=== PATIENT | female | born 1960 | race Caucasian/White ===

== ENCOUNTER 2018-06-26 08:30 | Emergency (ER) | payer OTHER ==
[~2018-06-26] VITALS: Ht 152.4 cm; Wt 56.0 kg
[2018-06-26] MEDS ORDERED: ONDANSETRON HCL 4MG/2ML INJ IV STA (09:17)
[2018-06-26] MEDS ORDERED: SODIUM CHLORIDE 0.9% 1,000 ML IV ONE (09:17)
[2018-06-26] MEDS ORDERED: MORPHINE SULFATE 10 MG/ML CPJ IV ONE (09:30)
[2018-06-26 10:21] LABS: BASOPHILS % 0.2 % (0.0-2.0); EOSINOPHILS % 0.1 % (0.0-5.0); HEMATOCRIT. 51.3 % (36.0-48.0); HEMOGLOBIN. 17.2 g/dL (12.0-16.0); LYMPHOCYTES % 7.1 % (20.0-50.0); MEAN CORPUSCULAR HEMOGLOBIN 30.6 pg (28.0-32.0); MEAN CORPUSCULAR VOLUME 91.2 fL (81.0-99.0); MEAN PLATELET VOLUME 8.7 fl (7.4-10.4); NEUTROPHILS % 84.6 % (40.0-76.0); PLATELET 299 x1000/uL (130-400); RED BLOOD CELL COUNT 5.63 mill/uL (4.2-5.4); RED CELL DISTRIBUTION WIDTH 14.1 % (11.6-14.6)
[2018-06-26 10:29] LABS: INR 1.1; PROTHROMBIN TIME 10.7 sec (9.1-11.1)
[2018-06-26 10:32] LABS: CLARITY URINE CLOUDY (CLEAR); COLOR URINE ORANGE (YELLOW); KETONES URINE 1+ (NEGATIVE); LEUKOCYTE ESTERASE URINE 1+ (NEGATIVE); NITRITE URINE POSITIVE (NEGATIVE); OCCULT BLOOD URINE 3+ (NEGATIVE); PROTEIN URINE 1+ (NEGATIVE); SPECIFIC GRAVITY URINE 1.027 (1.005-1.030)
[2018-06-26 10:41] LABS: CHLORIDE 100 mEq/L (98-107)
[2018-06-26] MEDS ORDERED: CEFTRIAXONE 1 G PREMIX 50 ML IV ONE (10:45)
[2018-06-26 11:52] VITALS: BP 158/78
== END 2018-06-26 12:29 | disposition home or self-care (01) ==
LOC: ER 08:30
DX: N10 Acute pyelonephritis (principal); E86.0 Dehydration; I10 Essential (primary) hypertension
CPT/HCPCS: 36415; 80053; 81003; 83605; 83690; 85025; 85610; 96361; 96374; 96375; 99283; J0696; J2270; J2405; J7030

== ENCOUNTER 2022-09-25 10:31 | Emergency (ER) | payer MEDICARE, OTHER ==
[~2022-09-25] VITALS: Ht 157.5 cm; Wt 73.0 kg
[2022-09-25] MEDS ORDERED: KETOROLAC 60MG/2ML VIAL IM ONE (16:30)
[2022-09-25] MEDS ORDERED: ACETAMINOPHEN 325MG TABLET PO ONE (16:30)
[2022-09-25] MEDS ORDERED: METHOCARBAMOL 750MG TABLET PO SCH (16:30)
[2022-09-25] MEDS ORDERED: DIAZEPAM 5 MG/ML 2ML CPJ IM ONE (16:30)
[2022-09-25] MEDS ORDERED: LIDOCAINE 5% PATCH TOP SCH (16:30)
[2022-09-25] MEDS ORDERED: IBUP-2028 MT ×3 (17:21→17:40)
[2022-09-25] MEDS ORDERED: LIDO1ADH23 TP ×3 (17:21→17:40)
[2022-09-25] MEDS ORDERED: TOPUD PO ×3 (17:21→17:40)
[2022-09-25] MEDS ORDERED: METH-653 MT ×3 (17:21→17:40)
[2022-09-25 18:30] VITALS: BP 155/69
== END 2022-09-25 18:51 | disposition home or self-care (01) ==
LOC: ER 10:45
DX: M62.830 Muscle spasm of back (principal); I10 Essential (primary) hypertension; R51.9 Headache, unspecified; Z86.73 Personal history of transient ischemic attack (TIA), and cerebral infarction without residual deficits; Z87.891 Personal history of nicotine dependence; F12.10 Cannabis abuse, uncomplicated
CPT/HCPCS: 70450; 96372; 99285; J1885